=== PATIENT | female | born 1955 | race African-American/Black ===

== ENCOUNTER 2016-06-05 05:43 | Inpatient (IN) | payer OTHER ==
[2016-05-27 18:31] LABS: BASOPHILS 0.4 %; BASOPHILS ABSOLUTE 0.03 10/3/uL (0.0-0.16); EOSINOPHILS 4.2 %; EOSINOPHILS ABSOLUTE 0.33 10/3/uL (0.0-0.53); HEMATOCRIT 36.6 % (36.0-48.0); HEMOGLOBIN 12.2 g/dL (12.0-16.0); IMMATURE GRANULOCYTES 0.1 %; IMMATURE GRANULOCYTES ABSOLUTE 0.01 10/3/uL (0.0-0.11); LYMPHOCYTES 33.8 %; LYMPHOCYTES ABSOLUTE 2.65 10/3/uL (0.67-4.30); MEAN CORPUS HGB CONC 33.3 g/dL (32.0-36.0); MEAN CORPUSCULAR VOLUME 87.1 fL (80-100); MEAN PLATELET VOLUME 10.2 fL (9.2-13.0); MONOCYTES ABSOLUTE 0.63 10/3/uL (0.21-1.20); NEUTROPHILS 53.5 %; PLATELET COUNT 292 10/3/uL (150-400); RBC DISTRIBUTION WIDTH 15.2 % (12.0-16.0); WHITE BLOOD CELLS 7.9 10/3/uL (4.5-10.5)
[2016-05-27 18:32] LABS: MANUAL DIFF NO %
[2016-05-27 18:38] LABS: ASCORBIC ACID (UR NOT ORDER) NEG (NEG); BILIRUBIN, URINE NEGATIVE (NEG); KETONE, URINE NEGATIVE (NEG); LEUKOCYTE ESTERASE(NOT OR NEG (NEG); WBC (NOT ORDERED) (RFLEX) < 1 (0-5)
[2016-05-27 18:40] LABS: PROTIME (NOT ORD) 12.6 SEC (12.0-14.5)
[2016-05-27 18:45] LABS: A/G RATIO 1.4 (0.7-1.9); ALBUMIN 3.8 G/DL (3.5-5.0); ALKALINE PHOSPHATASE 119 U/L (45-117); BUN (BLOOD UREA NITROGEN) 8 MG/DL (6-23); CALCIUM, SERUM 8.8 MG/DL (8.5-10.4); CHLORIDE, SERUM 109 MMOL/L (96-112); CO2 (CARBON DIOXIDE) 27 MMOL/L (24-34); CREATININE 0.94 MG/DL (0.55-1.02); GFR AFRICAN AMERICAN 76 ML/MIN (>=60); GFR NON AFRICAN AMERICAN 66 ML/MIN (>=60); GLOBULIN 2.8 G/DL (2.5-4.1); GLUCOSE, SERUM 81 MG/DL (60-99); POTASSIUM, SERUM 4.4 MMOL/L (3.5-5.3); SGOT(AST) 17 U/L (5-40); SGPT(ALT) 15 U/L (5-65); SODIUM, SERUM 144 MMOL/L (135-148); TOTAL BILIRUBIN 0.4 MG/DL (0-1.2); TOTAL PROTEIN 6.6 G/DL (6.0-8.5)
--- NOTE | ~2016-06-05 | DS ---
Discharge Summary [facility] [address] [facility] [place]. [address] NAME: ROCIO PEPPER : 57 STATUS : DIS IN PAT#: [id number] AGE: 61 ADM/REG DATE : 06/05/16 MR#: [id number] REPORT SERV DATE: 09/05/16 DICTATED BY: BROWN ALEXANDER DATE: 09/04/16 REPORT STATUS : Draft TRANSCRIBED BY: KATHY DATE: 09/04/16 Data Collection from hospitalization DISCHARGE DIAGNOSES: 1. Severe bilateral knee degenerative joint disease. 2. Hypertension. 3. Glaucoma. 4. Gastroesophageal reflux disease. 5. Depression and anxiety. 6. Chronic bronchitis. 7. Tobacco use. CONSULTATIONS: Anni Wyman NP PROCEDURES PERFORMED: Bilateral posterior stabilized total knee replacement, cemented, 06/05/2016. PATHOLOGY: Right knee arthroscopy arthroplasty - benign meniscus, cartilaginous tissue, soft tissue, and synovium with moderate synovial hyperplasia without significant inflammatory component, benign bone and cartilage with degenerative joint disease, cartilaginous eburnation and fissuring, focal medullary fibrosis and cystic change. Left knee arthroplasty - benign soft tissue and synovium with moderate synovial hyperplasia without significant inflammatory component, benign bone and cartilage with degenerative joint disease. MEDICATIONS: Celexa 40 mg daily, Colace 100 mg twice a day, ferrous sulfate 300 mg with breakfast and supper, Claritin 10 mg daily, Theragran tablets one tablet with breakfast, Ditropan XL 15 mg daily, Protonix 40 mg daily, Lyrica 50 mg twice a day, Senokot two tablets at bedtime, Zanaflex 4 mg three times a day, Coumadin as instructed, Tylenol 650 mg every four hours as needed, Mylanta 30 mL as needed, Dulcolax 15 mg as needed, milk of magnesia 30 mL as needed, Zofran 4 mg every four hours as needed, MiraLAX powder one packet twice a day as needed, oxycodone 15 mg every six hours as needed, ProAir two puffs via inhaler every four hours as needed, and Cozaar 50 mg daily. CONDITION AT DISCHARGE: Stable. DISPOSITION: The patient was discharged to [facility] on a regular diet with activities as instructed. She would follow up with me on 06/19/2016. HOSPITAL COURSE: This is a 61-year-old female who has had complaints of severe constant bilateral knee pain for about five years. She is status post previous right knee arthroscopy. The patient has severe bilateral knee degenerative joint disease. Treatment options were discussed and it was elected to proceed with surgical intervention. She was admitted to the hospital at this time for further evaluation and treatment. Upon admission, she was taken to the operating room where she underwent the above-mentioned procedure. She tolerated this well, and there were no complications. On postop day #1, she had some increased confusion and lethargy. She was seen by Anni Wyman. She was unaware Discharge Summary [address] [address] NAME: ROCIO PEPPER : 57 STATUS : DIS IN PAT#: [id number] AGE: 61 ADM/REG DATE : 06/05/16 MR#: [id number] REPORT SERV DATE: 09/05/16 DICTATED BY: BROWN ALEXANDER DATE: 09/04/16 REPORT STATUS : Draft TRANSCRIBED BY: KATHY DATE: 09/04/16 who her son was. The patient takes several medications that would cause somnolence and was found to have her pill bottles from home inside her purse. Nine Ambien pills were missing from those personal pill bottles. The patient had been receiving regularly scheduled sedating medication here at the facility and a continuation of care her home medications as well as pain control postoperatively. The patient's son took her personal belongings home with him and none remain in the room at this time. Creatinine level was 2.35. It was felt that her somnolence was likely related to medication overdose as it was suspected that she had taken her home medications that were in her purse as well as medications being dispensed here in the hospital as ordered. Narcan was going to be given. All of her sedating medications were going to be held for a medication holiday. We were going to offer non- opioid pain relief measures including nonpharmacologic pain relief measures. She does have acute kidney injury, likely related to medication overdose. A Soto catheter was in place. Gentle hydration was going to be offered. Her nonsedating antidepressant would be continued. She was transfused two units of packed red blood cells. On 06/07/2016, she was in no distress. She was requesting more pain medications. She had no edema. Her toxic encephalopathy had resolved. Acute kidney injury was improving. Creatinine level was 1.22. Blood pressure was controlled. We would resume her Cozaar when her kidney function improves. The patient denied taking any of her home medications. I spoke with the patient about over sedation and the risk of . BETHEL hose remained in place. We encouraged her to mobilize with Physical Therapy. She had received two units of packed red blood cells. On 06/08/2016, she did have episodes of dizziness. She was transfused one unit of packed red blood cells. IV fluid bolus was given. Acute kidney injury continued to improve. Creatinine level was 0.80. Protonix, Celexa, and Lyrica were continued. Blood pressure was controlled. The following day, she did have some constipation. Acute kidney injury had resolved. Discharge planning was performed. She was evaluated by Occupational and Physical Therapy. On 06/10/2016, she was up sitting in a bedside chair. She was alert and cooperative. Creatinine level was 0.70. Her home dose of losartan was going to be resumed. Hydralazine would be given as needed. Discharge instructions were given. Due to her improved and stable condition, she was discharged to [facility] with the above-stated instructions. Information collected by: Sheridan Castro I submit the above information as my discharge summary. TG/MODL Mckinley Alexander M.D. / [id number] CC: Sarah Soto TERRY B [facility]
--- NOTE | ~2016-06-05 | CN ---
Consultation Report [facility] [address] [place]. [address] NAME: ROCIO PEPPER : 57 STATUS : ADM IN PAT#: [id number] AGE: 61 ADM/REG DATE : 06/05/16 MR#: [id number] REPORT SERV DATE: 06/08/16 DICTATED BY: ANNI WYMAN DATE: 06/08/16 REPORT STATUS : Draft TRANSCRIBED BY: MODL DATE: 06/08/16 HOSPITALIST CONSULTATION DATE OF CONSULTATION: 06/06/2016 REASON FOR CONSULTATION: Increased confusion and lethargy, status post bilateral total knee arthroplasty completed on 06/06/2016. HISTORY OF PRESENT ILLNESS: This is a somnolent and lethargic, 61-year-old, female who was admitted to Dr. Canas for bilateral total knee arthroplasty that was completed on 06/06/2016. She is currently postop day 0. Since returned to the floor from her surgical procedure, she has had increased somnolence and confusion, oriented to person only. At this time, she is responsive to touch but remains confused and is unable to answer questions appropriately. At this time, patient remains oriented only to person, knowing herself. She is unaware of who her son is who was in the room earlier and when asked the date, including month or year, the patient responds with "[place]" which is where patient lives. The patient takes several medications that would cause somnolence and was found to have her pill bottles from home inside her purse and of note 9 Ambien pills were missing from those personal pill bottles. The patient has also been receiving regularly scheduled sedating medication here at this facility and a continuation of care of her home medications as well as pain control post her surgical procedure. The son has now taken patient's personal belongings home with him and none remained in the room to our knowledge. The patient's vital signs are stable at this time, and she is unable to participate fully in a complete review of systems as she is confused and somnolent. PAST MEDICAL HISTORY: Significant for 1. Hypertension. 2. Glaucoma. 3. GERD. 4. Depression and anxiety. 5. Bilateral knee pain. 6. Chronic lumbar pain. 7. Chronic bronchitis. SURGICAL HISTORY: Significant for right knee arthroscopy 2002, cholecystectomy 1999, hysterectomy 1994, bilateral total knee arthroplasty, 06/06/2016. The patient follows with pain management, Dr. Smart, who is in [place], [place]. This information is obtained from the record. SOCIAL HISTORY: Again, obtained from previous record as patient is unable to cooperate with questions. The patient has smoked 1/2 pack a day of cigarettes for thirty five years and continues to smoke. Alcohol and illicit drug use is unknown. Consultation Report [address] [place]. [address] NAME: ROCIO PEPPER : 57 STATUS : [facility] [id number] AGE: 61 ADM/REG DATE : 06/05/16 MR#: [id number] REPORT SERV DATE: 06/08/16 DICTATED BY: ANNI WYMAN DATE: 06/08/16 REPORT STATUS : Draft TRANSCRIBED BY: KATHY DATE: 06/08/16 FAMILY HISTORY: Unknown at this time. ALLERGIES: NO KNOWN ALLERGIES. HOME MEDICATIONS: 1. ProAir inhaler 2 puffs q.4 hours p.r.n. 2. Celexa 40 mg p.o. daily. 3. Claritin 10 mg p.o. daily. 4. Cozaar 50 mg p.o. daily. 5. Mobic 15 mg p.o. daily. 6. Oxybutynin XL 15 mg p.o. daily. 7. Protonix 40 mg p.o. daily. 8. Lyrica 50 mg p.o. twice daily. 9. Seroquel 100 mg p.o. at bedtime. 10.Zanaflex 4 mg p.o. 3 times daily. 11.Roxicodone 10 mg p.o. 4 times daily. 12.Ambien 10 mg p.o. at bedtime. REVIEW OF SYSTEMS: The patient is unable to participate meaningfully in review of systems as she remains confused and somnolent requiring frequent redirection and stimulation to respond to questions though she does deny specifically chest pain, palpitations, and shortness of breath. PHYSICAL EXAMINATION: VITAL SIGNS: T 99.2, P 83, RR 18, BP 108/53, SpO2 100 on 2 L nasal cannula. GENERAL: Somnolent, lethargic, female. NEURO: Responsive to physical touch, oriented to person only. No focal deficits appreciated. HEENT: Normocephalic, atraumatic without lymphadenopathy. NECK: Supple. No JVD. LUNGS: CTA in all lung victor. Diminished in bilateral bases with normal respiratory effort. CV: Regular rate and rhythm. S1, S2 auscultated without murmur, rub, gallop or click. ABDOMEN: Soft, round, nontender. Bowel sounds active in all quadrants. No masses. EXTREMITIES: No cyanosis or edema. Cap refill is within normal limits. Normal distal pulses. PSYCH: The patient is somnolent but arousable to speech, confused. SKIN: Clean, dry, and intact with mucous membranes pink and moist. PERTINENT LABS: BUN and creatinine are 13 and 2.35 which is up from previous value of 8 and 0.94. Sodium is 130. Serum glucose is 116. H and H are 7.1 and 20.6. ASSESSMENT AND PLAN: 1. Somnolence. This is acute and likely related to medication overdose with patient Consultation Report [address] [place]. [address] NAME: ROCIO PEPPER : 57 STATUS : ADM IN [facility]#: [id number] AGE: 61 ADM/REG DATE : 06/05/16 MR#: [id number] REPORT SERV DATE: 06/08/16 DICTATED BY: ANNI WYMAN DATE: 06/08/16 REPORT STATUS : Draft TRANSCRIBED BY: KATHY DATE: 06/08/16 suspected of taking home medications that were in her purse as well as medications being dispensed here at the hospital as ordered. We will give Narcan per her MAR, hold all sedating medications for a medication holiday and offer non opioid pain relief measures including nonpharmacologic pain relief measures. We will consult case management for help with polypharmacy that has led to altered mental status. 2. Acute kidney injury. This is likely related to medication overdose. The patient does have a Soto in place at this time. We will offer gentle hydration. Continue with medication holiday and monitor labs. 3. Chronic pain. The patient does have this chronic condition with polypharmacy and follows with pain management. At this time, we will provide a medication holiday as previously discussed and offer non-opiate pain relief measures during this holiday. 4. Depression. Again, this is chronic with polypharmacy likely contributing to diagnoses #1 and 2. We will continue nonsedating antidepressants. We will offer close followup with the patient and suggest outpatient behavioral health followup. 5. Postbilateral TKA. This is acute on postop day 0. We will defer management of this to the Primary Team except for we are holding sedating medications for medication holiday as previously discussed, and we will re-evaluate the need for these medications with her monitoring. Thank you for this consult. We are pleased to follow this patient with you. This consult was completed through thorough review of [employer], old records, [employer], and current chart. [facility]/MODL Anni Wyman NP / [id number] CC: Sarah Soto
--- NOTE | ~2016-06-05 | OP ---
Record Of Operation [facility] [address] [place]. [address] NAME: ROCIO PEPPER : 57 STATUS : ADM IN PAT#: [id number] AGE: 61 ADM/REG DATE : 06/05/16 MR#: [id number] REPORT SERV DATE: 06/06/16 DICTATED BY: BROWN ALEXANDER DATE: 06/06/16 REPORT STATUS : Draft TRANSCRIBED BY: MODL DATE: 06/06/16 DATE OF PROCEDURE: 06/05/2016 PREOPERATIVE DIAGNOSIS: Severe bilateral knee degenerative joint disease. POSTOPERATIVE DIAGNOSIS: Severe bilateral knee degenerative joint disease. OPERATION: Bilateral posterior stabilized total knee replacement, cemented. SIDE: Right and left. SIZE: See chart. ANESTHESIA: See chart. ESTIMATED BLOOD LOSS: About 10 mL in each knee. TOURNIQUET TIME: Approximately 1 hour and 10 minutes. COMPLICATIONS: None. SPECIMENS: Articular surfaces. PROCEDURE: The patient was appropriately identified and marked. The operative side agreed with the consent form and it was checked by all members of the surgical team. The patient was taken to the operating room and anesthesia was induced per the anesthesiologist. The patient was carefully transferred to the operating table without incident. The patient received appropriate prophylactic antibiotics and a Soto catheter was placed in the standard sterile technique. The patient was then carefully positioned, padded, prepped and draped in the normal sterile fashion. The operative leg had been appropriately identified and checked by all members of the operating team against the consent form and found to be the correct limb. The patient's lower extremity was then exsanguinated with an Rudy wrap and a tourniquet was inflated to 350 mmHg. Sharp dissection was carried out through a straight midline longitudinal incision and electrocautery through the fat. Sharp quad splitting approach was carried out between about the medial 10 percent of the tendon and the lateral 90 percent of the tendon and down around the medial aspect of the patella and then 1 cm medial to the tibial tubercle. The patella was carefully everted and the posterior fat pad was excised and gentle MCL elevation was carried out off the proximal medial tibia subperiosteally. IM guide was placed in the distal femur after using the appropriate drill. The distal femoral cutting guide was held with 2 pins and the distal cut made. Meniscal fragments and the ACL and the PCL were excised with electrocautery, carefully staying anterior to the posterior fat pad. The proximal tibial alignment guide was set appropriately and the proximal tibial cut made. Spacer block verified full extension with excellent mediolateral balance. Sizing guide was used to place 2 drill holes in the distal femur and the four-in-one cutting block was then placed, impacted and checked Record Of Operation [facility] [address] [place]. [address] NAME: ROCIO PEPPER : 57 STATUS : ADM IN PAT#: [id number] AGE: 61 ADM/REG DATE : 06/05/16 MR#: [id number] REPORT SERV DATE: 06/06/16 DICTATED BY: BROWN ALEXANDER DATE: 06/06/16 REPORT STATUS : Draft TRANSCRIBED BY: KATHY DATE: 06/06/16 to be sure it would not notch with an mark wing and it was held with 2 pins. The anterior cut, posterior cut, anterior chamfer and posterior chamfer cuts were made. The pins were removed and the block was removed. A posterior release was carried out with a curved 3/4 inch osteotome staying right on the bone posteriorly. The box-cut guide was then placed, impacted and held with 2 pins and a reciprocating saw was used to cut out the box. With the trial components in place, there was excellent medial/lateral balance. The patella was then measured with a caliper, cut first with an oscillating saw and then reamed with a patella reamer. With the trial patella in place, there was excellent patellar tracking. Rotation was marked on the tibia and the tibia prepared with a drill and stamp chisel. All surfaces were then copiously irrigated with pulsatile lavage, carefully dried and then vacuum-mixed cement was pressurized with a cement gun in a doughy phase. The tibial component was placed, impacted and excess cement was removed. The cement was then pressurized in the femur and placed on the posterior runners of the femoral component, which was placed, impacted and excess cement removed and the knee was brought out into extension on a trial spacer. The cement was then pressurized in the patella. Patellar component was then placed, clamped and excess cement was removed. Once all cement was hardened, the knee was taken through range of motion. Further extruded cement was removed with a small osteotome. Then based on the trial inserts, we decided on the actual insert, which was placed in the standard fashion and held with a locking mechanism. The knee was then copiously irrigated and then closed in a layered fashion over a medium Hemovac drain superolaterally with interrupted #1 in the deep fascia, 2-0 subcutaneous and jakub in the skin. The wounds were dressed sterilely and the tourniquet was deflated. After completion of the first knee and discussion with the anesthesiologist, all parameters were acceptable and we decided to proceed with the second knee. Same procedure as that dictated above was carried out on the contralateral knee. The contralateral leg was again appropriately identified and checked by all members of the operating team against the consent form and found to be the correct limb. The patient's lower extremity was then exsanguinated with an Rudy wrap and a tourniquet was inflated to 350 mmHg. Sharp dissection was carried out through a straight midline longitudinal incision and electrocautery through the fat. Sharp quad splitting approach was carried out between about the medial 10 percent of the tendon and the lateral 90 percent of the tendon and down around the medial aspect of the patella and then 1 cm medial to the tibial tubercle. The patella was carefully everted and the posterior fat pad was excised and gentle MCL elevation was carried out off the proximal medial tibia subperiosteally. IM guide was placed in the distal femur after using the appropriate drill. The distal femoral cutting guide was held with 2 pins and the distal cut made. Meniscal fragments and the ACL and the PCL were excised with electrocautery, carefully staying anterior to the posterior fat pad. The proximal tibial alignment guide was set appropriately and the proximal tibial cut made. Spacer block verified full extension with excellent mediolateral balance. Sizing guide was used to place 2 drill holes in the distal femur and the four-in-one cutting block was then placed, impacted and checked to be sure it would not notch with an mark wing and it was held with 2 pins. The anterior cut, posterior cut, anterior chamfer and posterior chamfer cuts were made. The pins were removed and the block was removed. A posterior release was carried out with a curved 3/4 inch osteotome staying right on the bone posteriorly. The box cut guide was then placed, impacted and held with 2 pins and a reciprocating saw was used to Record Of Operation [address] [place]. [address] NAME: ROCIO PEPPER : 57 STATUS : ADM IN PAT#: [id number] AGE: 61 ADM/REG DATE : 06/05/16 MR#: [id number] REPORT SERV DATE: 06/06/16 DICTATED BY: BROWN ALEXANDER DATE: 06/06/16 REPORT STATUS : Draft TRANSCRIBED BY: MODHernandez DATE: 06/06/16 cut out the box. With the trial components in place, there was excellent medial/lateral balance. The patella was then measured with a caliper, cut first with an oscillating saw and then reamed with a patella reamer. With the trial patella in place, there was excellent patellar tracking. Rotation was marked on the tibia and the tibia prepared with a drill and stamp chisel. All surfaces were then copiously irrigated with pulsatile lavage, carefully dried and then vacuum-mixed cement was pressurized with a cement gun in a doughy phase. The tibial component was placed, impacted and excess cement was removed. The cement was then pressurized in the femur and placed on the posterior runners of the femoral component, which was placed, impacted and excess cement removed and the knee was brought out into extension on a trial spacer. The cement was then pressurized in the patella. Patellar component was then placed, clamped and excess cement was removed. Once all cement was hardened, the knee was taken through range of motion. Further extruded cement was removed with a small osteotome. Then based on the trial inserts, we decided on the actual insert, which was placed in the standard fashion and held with a locking mechanism. The knee was then copiously irrigated and then closed in a layered fashion over a medium Hemovac drain superolaterally with interrupted #1 in the deep fascia, 2-0 subcutaneous and jakub in the skin. The wounds were dressed sterilely and the tourniquet was deflated. The patient was then awakened and taken to the postanesthesia care unit without incident. All counts were correct at the end of the case. WTB/MODL Mckinley Alexander M.D. / [id number] CC: Mckinley Alexander M.D. Alex Bonilla
[~2016-06-05 05:43] MED LIST: AMB10 PO; B12100T PO; CALTRA600D PO; CELEXA40 MG PO; CLARIT10 PO; COZ50 PO; CYMBALTA30 PO; DEPAKOT250 PO; DITROPAN XL15 MG PO; EFFEXOR100 MG PO; LORTAB10 PO; LYRICA50 PO; MOBIC15 MG PO; PERCOCET 10/3251 TAB PO; PROAIR HFA INH; PROTONIX PO; ROXICODONE PO; SEROQUEL1C PO; SEROQUEL50 MG PO; VITAMIN D400 UNI1 PO; VITE200U PO; ZANAFLEX 4 MG TA4 MG PO; ZANAFLEX2 MG PO
[2016-06-06 04:48] LABS: INTERNATIONAL NORMAL RATI 1.3 UNITS (-)
[2016-06-06 04:49] LABS: PROTIME (NOT ORD) 15.8 SEC (12.0-14.5)
[2016-06-06 04:53] LABS: CO2 (CARBON DIOXIDE) 24 MMOL/L (24-34); POTASSIUM, SERUM 4.3 MMOL/L (3.5-5.3)
[2016-06-06 04:59] LABS: HEMATOCRIT 20.6 % (36.0-48.0); HEMOGLOBIN 7.1 g/dL (12.0-16.0); SODIUM, SERUM 130 MMOL/L (135-148)
[2016-06-06 05:00] LABS: BUN (BLOOD UREA NITROGEN) 13 MG/DL (6-23); CALCIUM, SERUM 7.8 MG/DL (8.5-10.4); CHLORIDE, SERUM 98 MMOL/L (96-112); CREATININE 2.35 MG/DL (0.55-1.02); GFR AFRICAN AMERICAN 25 ML/MIN (>=60); GFR NON AFRICAN AMERICAN 22 ML/MIN (>=60); GLUCOSE, SERUM 116 MG/DL (60-99)
[2016-06-07 06:17] LABS: BASOPHILS 0.1 %; BASOPHILS ABSOLUTE 0.01 10/3/uL (0.0-0.16); EOSINOPHILS 0.1 %; EOSINOPHILS ABSOLUTE 0.01 10/3/uL (0.0-0.53); HEMATOCRIT 25.9 % (36.0-48.0); HEMOGLOBIN 9.3 g/dL (12.0-16.0); IMMATURE GRANULOCYTES 0.3 %; IMMATURE GRANULOCYTES ABSOLUTE 0.04 10/3/uL (0.0-0.11); LYMPHOCYTES 12.9 %; LYMPHOCYTES ABSOLUTE 1.62 10/3/uL (0.67-4.30); MANUAL DIFF NO %; MEAN CORPUS HGB CONC 35.9 g/dL (32.0-36.0); MEAN CORPUSCULAR HEMOGLOB 30.1 pg (26.0-34.0); MEAN CORPUSCULAR VOLUME 83.8 fL (80-100); MEAN PLATELET VOLUME 10.1 fL (9.2-13.0); MONOCYTES 11.8 %; MONOCYTES ABSOLUTE 1.48 10/3/uL (0.21-1.20); NEUTROPHILS 74.8 %; NEUTROPHILS ABSOLUTE 9.36 10/3/uL (2.02-8.40); PLATELET COUNT 177 10/3/uL (150-400); RBC DISTRIBUTION WIDTH 14.1 % (12.0-16.0); RED CELL COUNT 3.09 10/6/uL (4.0-5.6); WHITE BLOOD CELLS 12.5 10/3/uL (4.5-10.5)
[2016-06-07 06:20] LABS: PROTIME (NOT ORD) 22.7 SEC (12.0-14.5)
[2016-06-07 06:27] LABS: BUN (BLOOD UREA NITROGEN) 15 MG/DL (6-23); CALCIUM, SERUM 8.1 MG/DL (8.5-10.4); CHLORIDE, SERUM 101 MMOL/L (96-112); CO2 (CARBON DIOXIDE) 23 MMOL/L (24-34); GLUCOSE, SERUM 118 MG/DL (60-99); POTASSIUM, SERUM 4.4 MMOL/L (3.5-5.3); SGOT(AST) 25 U/L (5-40); SGPT(ALT) 8 U/L (5-65); SODIUM, SERUM 133 MMOL/L (135-148); TOTAL PROTEIN 5.3 G/DL (6.0-8.5)
[2016-06-07 06:28] LABS: A/G RATIO 0.9 (0.7-1.9); ALBUMIN 2.5 G/DL (3.5-5.0); ALKALINE PHOSPHATASE 103 U/L (45-117); CREATININE 1.22 MG/DL (0.55-1.02); GFR AFRICAN AMERICAN 56 ML/MIN (>=60); GFR NON AFRICAN AMERICAN 48 ML/MIN (>=60); GLOBULIN 2.8 G/DL (2.5-4.1); TOTAL BILIRUBIN 1.1 MG/DL (0-1.2)
[2016-06-07 08:28] LABS: ASCORBIC ACID (UR NOT ORDER) NEG (NEG); BILIRUBIN, URINE NEGATIVE (NEG); KETONE, URINE NEGATIVE (NEG); LEUKOCYTE ESTERASE(NOT OR SMALL (NEG); WBC (NOT ORDERED) (RFLEX) 2 (0-5)
[2016-06-08 06:01] LABS: BASOPHILS 0.3 %; BASOPHILS ABSOLUTE 0.03 10/3/uL (0.0-0.16); EOSINOPHILS 1.4 %; EOSINOPHILS ABSOLUTE 0.14 10/3/uL (0.0-0.53); HEMOGLOBIN 8.1 g/dL (12.0-16.0); IMMATURE GRANULOCYTES 0.3 %; IMMATURE GRANULOCYTES ABSOLUTE 0.03 10/3/uL (0.0-0.11); LYMPHOCYTES 21.4 %; LYMPHOCYTES ABSOLUTE 2.21 10/3/uL (0.67-4.30); MEAN CORPUS HGB CONC 35.8 g/dL (32.0-36.0); MEAN CORPUSCULAR HEMOGLOB 30.2 pg (26.0-34.0); MEAN CORPUSCULAR VOLUME 84.3 fL (80-100); MEAN PLATELET VOLUME 10.3 fL (9.2-13.0); MONOCYTES 12.2 %; MONOCYTES ABSOLUTE 1.26 10/3/uL (0.21-1.20); NEUTROPHILS 64.4 %; NEUTROPHILS ABSOLUTE 6.65 10/3/uL (2.02-8.40); PLATELET COUNT 178 10/3/uL (150-400); RBC DISTRIBUTION WIDTH 14.7 % (12.0-16.0); RED CELL COUNT 2.68 10/6/uL (4.0-5.6); WHITE BLOOD CELLS 10.3 10/3/uL (4.5-10.5)
[2016-06-08 06:03] LABS: HEMATOCRIT 22.6 % (36.0-48.0); MANUAL DIFF NO %
[2016-06-08 06:06] LABS: PROTIME (NOT ORD) 22.8 SEC (12.0-14.5)
[2016-06-08 06:28] LABS: ALBUMIN 2.2 G/DL (3.5-5.0); CALCIUM, SERUM 7.7 MG/DL (8.5-10.4); CHLORIDE, SERUM 105 MMOL/L (96-112); CO2 (CARBON DIOXIDE) 25 MMOL/L (24-34); GFR AFRICAN AMERICAN 93 ML/MIN (>=60); GFR NON AFRICAN AMERICAN 80 ML/MIN (>=60); GLUCOSE, SERUM 98 MG/DL (60-99); PHOSPHORUS, SERUM 1.8 MG/DL (2.5-4.5); POTASSIUM, SERUM 4.3 MMOL/L (3.5-5.3); SODIUM, SERUM 137 MMOL/L (135-148)
[2016-06-08 06:29] LABS: BUN (BLOOD UREA NITROGEN) 9 MG/DL (6-23)
[2016-06-09 04:10] LABS: BASOPHILS 0.3 %; BASOPHILS ABSOLUTE 0.03 10/3/uL (0.0-0.16); EOSINOPHILS 1.6 %; EOSINOPHILS ABSOLUTE 0.18 10/3/uL (0.0-0.53); HEMATOCRIT 25.9 % (36.0-48.0); HEMOGLOBIN 9.3 g/dL (12.0-16.0); IMMATURE GRANULOCYTES 0.4 %; IMMATURE GRANULOCYTES ABSOLUTE 0.05 10/3/uL (0.0-0.11); LYMPHOCYTES 22.3 %; LYMPHOCYTES ABSOLUTE 2.51 10/3/uL (0.67-4.30); MEAN CORPUS HGB CONC 35.9 g/dL (32.0-36.0); MEAN CORPUSCULAR HEMOGLOB 30.8 pg (26.0-34.0); MEAN CORPUSCULAR VOLUME 85.8 fL (80-100); MEAN PLATELET VOLUME 10.2 fL (9.2-13.0); MONOCYTES 12.2 %; MONOCYTES ABSOLUTE 1.37 10/3/uL (0.21-1.20); NEUTROPHILS 63.2 %; NEUTROPHILS ABSOLUTE 7.13 10/3/uL (2.02-8.40); PLATELET COUNT 224 10/3/uL (150-400); RBC DISTRIBUTION WIDTH 14.7 % (12.0-16.0); RED CELL COUNT 3.02 10/6/uL (4.0-5.6); WHITE BLOOD CELLS 11.3 10/3/uL (4.5-10.5)
[2016-06-09 04:11] LABS: MANUAL DIFF NO %
[2016-06-09 04:21] LABS: BUN (BLOOD UREA NITROGEN) 7 MG/DL (6-23); CALCIUM, SERUM 8.3 MG/DL (8.5-10.4); CHLORIDE, SERUM 100 MMOL/L (96-112); GFR AFRICAN AMERICAN 109 ML/MIN (>=60); GFR NON AFRICAN AMERICAN 94 ML/MIN (>=60); GLUCOSE, SERUM 103 MG/DL (60-99); POTASSIUM, SERUM 4.2 MMOL/L (3.5-5.3); SODIUM, SERUM 134 MMOL/L (135-148)
[2016-06-09 04:27] LABS: CO2 (CARBON DIOXIDE) 30 MMOL/L (24-34)
[2016-06-09 05:09] LABS: INTERNATIONAL NORMAL RATI 1.8 UNITS (-); PROTIME (NOT ORD) 20.8 SEC (12.0-14.5)
[2016-06-10 05:21] LABS: BASOPHILS 0.4 %; BASOPHILS ABSOLUTE 0.04 10/3/uL (0.0-0.16); EOSINOPHILS 2.1 %; EOSINOPHILS ABSOLUTE 0.23 10/3/uL (0.0-0.53); HEMATOCRIT 27.6 % (36.0-48.0); HEMOGLOBIN 9.7 g/dL (12.0-16.0); IMMATURE GRANULOCYTES 0.4 %; IMMATURE GRANULOCYTES ABSOLUTE 0.04 10/3/uL (0.0-0.11); LYMPHOCYTES 19.3 %; LYMPHOCYTES ABSOLUTE 2.15 10/3/uL (0.67-4.30); MEAN CORPUS HGB CONC 35.1 g/dL (32.0-36.0); MEAN CORPUSCULAR HEMOGLOB 30.8 pg (26.0-34.0); MEAN CORPUSCULAR VOLUME 87.6 fL (80-100); MEAN PLATELET VOLUME 9.8 fL (9.2-13.0); MONOCYTES 13.2 %; MONOCYTES ABSOLUTE 1.47 10/3/uL (0.21-1.20); NEUTROPHILS 64.6 %; NEUTROPHILS ABSOLUTE 7.22 10/3/uL (2.02-8.40); PLATELET COUNT 283 10/3/uL (150-400); RBC DISTRIBUTION WIDTH 14.9 % (12.0-16.0); RED CELL COUNT 3.15 10/6/uL (4.0-5.6); WHITE BLOOD CELLS 11.2 10/3/uL (4.5-10.5)
[2016-06-10 05:22] LABS: MANUAL DIFF NO %
[2016-06-10 05:30] LABS: BUN (BLOOD UREA NITROGEN) 7 MG/DL (6-23); CALCIUM, SERUM 8.9 MG/DL (8.5-10.4); CHLORIDE, SERUM 97 MMOL/L (96-112); CO2 (CARBON DIOXIDE) 33 MMOL/L (24-34); GFR AFRICAN AMERICAN 109 ML/MIN (>=60); GFR NON AFRICAN AMERICAN 94 ML/MIN (>=60); GLUCOSE, SERUM 120 MG/DL (60-99); POTASSIUM, SERUM 4.4 MMOL/L (3.5-5.3); SODIUM, SERUM 134 MMOL/L (135-148)
[2016-06-10 05:34] LABS: INTERNATIONAL NORMAL RATI 1.8 UNITS (-); PROTIME (NOT ORD) 21.1 SEC (12.0-14.5)
== END 2016-06-10 16:48 | DRG 461 ==
LOC: SDC/OF 05:43 → PACU 10:10 → 3SO 12:06
PROVIDERS: Internal Medicine; Nurse Practitioner Acute Care; Specialist
PROC: 0SRC0J9 Replacement of Right Knee Joint with Synthetic Substitute, Cemented, Open Approach (ICD-10-PCS; 2016-06-05)
PROC: 0SRD0J9 Replacement of Left Knee Joint with Synthetic Substitute, Cemented, Open Approach (ICD-10-PCS; principal; 2016-06-05 06:45)
PROC: 30233N1 Transfusion of Nonautologous Red Blood Cells into Peripheral Vein, Percutaneous Approach (ICD-10-PCS; 2016-06-08)
DX: M17.0 Bilateral primary osteoarthritis of knee (principal); G93.40 Encephalopathy, unspecified; G93.41 Metabolic encephalopathy; N17.9 Acute kidney failure, unspecified; D62 Acute posthemorrhagic anemia; F32.9 Major depressive disorder, single episode, unspecified; I10 Essential (primary) hypertension; K21.9 Gastro-esophageal reflux disease without esophagitis
CPT/HCPCS: 36415; 71020-PO; 80048; 80053; 80069; 81001; 82962; 85014; 85018; 85025; 85610; 86850; 86900; 86901; 86920; 87086; 87641; 88305; 88311; 93005; 97110-GP; 97116-GP; 97161-GP; 97164-GP; 97166-GO; 97168-GO; 97530-GP; 97535-GO; A9270-GY; C1776; J0690; J1885; J2250; J2274; J2405; J2710; J2795; J3010; P9016